=== PATIENT | female | born 1955 | race Caucasian/White ===

== ENCOUNTER 2018-07-19 11:51 | Emergency (ER) | payer OTHER, MEDICAID ==
[~2018-07-19] VITALS: Ht 160 cm; Wt 59.0 kg
[~2018-07-19 11:51] MED LIST: AMLODIPINE BES2.5 M1 PO; COR3 PO; D-20001 TAB PO; ECO81 PO; LEVAQUIN750 MG PO; NEU300 PO; TRAMADOL HCL50 MG PO; ZES5 PO
[2018-07-19 12:02] VITALS: BP 150/87; Ht 160 cm; Wt 59.0 kg
== END 2018-07-19 13:33 | disposition home or self-care (01) ==
LOC: ED 11:51
DX: M25.571 Pain in right ankle and joints of right foot (principal); I10 Essential (primary) hypertension; F41.9 Anxiety disorder, unspecified; F32.9 Major depressive disorder, single episode, unspecified; M72.2 Plantar fascial fibromatosis; M79.7 Fibromyalgia
CPT/HCPCS: J1885; Q0092